=== PATIENT | female | born 2005 | race Caucasian/White ===

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

== ENCOUNTER 2024-08-15 08:17 | Emergency (ER) | payer OTHER, SELFPAY ==
--- OUTSIDE RECORDS SUMMARY | 2024-08-15 08:21 | XMS_ITS | Clinical Summary ---
Author Organization [facility] Address [address] [place] [id number] Care Team Providers Care Scrap Bunch Maker Name Role Phone Pcp, No Primary Care Provider Unavailabl e Allergies No known active allergies Medications ISOtretinoin (ACCUTANE PO) Active dexamethasone (DECADRON) 2 MG tablet Take 5 tablets by mouth 1 time. 5 tablet 10/03/2019 Active Active Problems No known active problems Immunizations Immunization Administration Dates Next Due DTaP 05/21/2010, 9,12/03/2008,12/21/2004,0 12/21/2004,2003,2003,2003, DTaP/IPV 12/03/2008 HIB, Unspecified Formulation 03/24/2004,09/25/19 04,2003,2003 Hep A, ped/adol, 2 dose 04/16/2015,03/05/2014, Hep B, Unspecified Formulation 2003 Hep B, adolescent or pediatric 03/05/2014,2003,2003,2003 Hib (PRP-T) 03/24/2004,2003,2003 ,2003 IPV 12/03/2008,03/24/2004,2003 ,2003 MMR 12/03/2008,12/21/2004,2003 Meningococcal Conjugate MCV4O 10/27/2017 Polio, Oral 03/24/2004,2003,2003 Polio, Unspecified Formulation 03/24/2004,2003,2003 Tdap 04/16/2015 Varicella 08/07/2009,12/03/2008 Surgical History Surgery Date Site/Laterality Comments NO PAST SURGERIES Family History Medical History Relation Comments Diabetes Brother NEGATIVE FAMILY HX OF Father Hearing Loss Mother NEGATIVE FAMILY HX OF Mother Cancer Paternal Grandmother Relation Status Comments Brother Father Alive Mother Alive Paternal Grandmother Social History Tobacco Use Types Packs/Day Years Used Date Smoking Tobacco: Never Smokeless Tobacco: Never Tobacco Cessation:Counseling Given: Yes Alcohol Use Standard Drinks/Week Comments No 0 (1 standard drink = 0.6 oz pur e alcohol) PHQ-2 Answer Date Recorded PHQ-2 Score 1 10/18/2018 Interpersonal Safety Answer Date Record ed Social Determinants: Intimate Partner Violence P ast Fear Not on file 07/31/2020 Social Determinants: Intimate Partner Violence C urrent Fear Not on file 07/31/2020 Inadequate Housing Answer Date Recorded Social Determinants: Housing (Overall Score Help er) 0 12/10/2018 Sexually Active Control Partners Comments Never Comments No Sex and Gender Information Value Date Recorded Sex Assigned at Not on file Legal Sex Female 10:53 AM SLEEVE SEWER Gender Identity Not on file Sexual Orientation Not on file Obstetrics History Last Filed Vital Signs Vital Sign Reading Time Taken Comments Blood Pressure 124/73 10/01/2021 9:32 AM CDT Pulse 100 10/01/2021 9:32 AM CDT Temperature 36.2 C (97.2 F) 10/01/2021 9:32 AM CDT Respiratory Rate 18 10/01/2021 9:32 AM CDT Oxygen Saturation 99% 10/01/2021 9:32 AM CDT Inhaled Oxygen Concentration - - Weight 52 kg (114 lb 10.2 oz) 10/01/2021 9:32 AM CDT Height 172.7 cm (5' 8) 10/03/2019 10:38 AM CDT Body Mass Index - - Plan of Treatment Health Maintenance Due Date Last Done Comments Annual Physical (ages 3 - 21) 2006 Depression Screening 2015 HPV Vaccine (1 - 3-dose series) 2018 Meningococcal Serogroup B Vaccine (1 of 2 - Standard) 2019 Chlamydia and Gonorrhea Screening (if sexually active) 2021 COVID-19 Vaccine ( - 2023- season) 2023 Influenza Vaccine (Season Ended) 2024 DTaP/Tdap/Td Vaccine (7 - Td or Tdap) 04/16/2025 04/16/2015, 05/21/2010, 12/03/2008, Additional history exists Varicella Vaccine Completed 08/07/2009, 12/03/2008 Hepatitis B Vaccine Completed 03/05/2014, 2003, 2003, Additional history exists Hepatitis A Vaccine Completed 04/16/2015, 03/05/2014, 2003 Meningococcal Vaccine Aged Out 10/27/2017 No monroe verna eligible based on patient's age to complete this topic Pneumococcal Vaccine 0-49 Aged Out No longer eligible based on patient's age to complete this topic Care Teams Scrap Bunch Maker Relationship Specialty Start Date End Date Pcp, No PCP - General 10/01/21
--- OUTSIDE RECORDS SUMMARY | 2024-08-15 08:21 | XMS_ITS | Encounter Summary ---
Author Organization [facility] Address [address] [place] [address] Care Team Providers Care Auditor Tax Name Role Phone Sharon Rebolledo MD Primary Care Provider [phone] Júnior Rice MD Primary Care Provider [phone] Maxwell Ulloa [facility] Primary Care Provider [phone] Reason for Visit * Reason Comments Discharge Summary (SCAN) [facility] Encounter Details Date Type Department Care Team (Late st Contact Info) Description [facility] [address] [place] [phone] Scanned, Documents Discharge Summary (SCAN) ([facility]) Social History Tobacco Use Types Packs/Day Years Used Date Smoking Tobacco: Never Smokeless Tobacco: Never Comments:No second hand smok e Alcohol Use Standard Drinks/Week Comments No 0 (1 standard drink = 0.6 oz pur e alcohol) Comments No Sex and Gender Information Value Date Recorded Sex Assigned at Not on file Legal Sex Female 12:20 PM CDT Gender Identity Not on file Sexual Orientation Not on file documented as of this encounter Progress Notes * Pinky Smith - 02/10/2009 11:37 AM UNION LABORER N LABORER documented in this encounter Plan of Treatment Not on file documented as of this encounter Visit Diagnoses Not on filedocumented in this encounter Care Teams Auditor Tax Relationship Specialty Start Date End Date Sharon Rebolledo MD [address] [place] [address] PCP - General 03 10/27/08 Júnior Rice MD [address] [place] [phone] PCP - General FAMILY PRACTICE 10/22/12 10/26/15 Maxwell Ulloa, [facility] [place] [address] PCP - General NURSE PRACTITIONER 12/01/21 documented as of this encounter
--- OUTSIDE RECORDS SUMMARY | 2024-08-15 08:21 | XMS_ITS | Encounter Summary ---
Author Organization [facility] Address [address] [place] [address] Care Team Providers Care Production Dispatcher Name Role Phone Júnior Rice MD Primary Care Provider [phone] Maxwell Ulloa [facility] Primary Care Provider [phone] Reason for Visit * Reason Comments Error Encounter Details Date Type Department Care Team (Late st Contact Info) Description 02/13/[address] [facility] BUSINESS OFFICE [address] [place] [phone] Scanned, Documents Error Social History Tobacco Use Types Packs/Day Years [...] on file documented as of this encounter Plan of Treatment Not on file documented as of this encounter Visit Diagnoses Not on filedocumented in this encounter Care Teams Production Dispatcher Relationship Specialty Start Date End Date Júnior Rice MD [address] [place] [address] PCP - General FAMILY PRACTICE 10/22/12 10/26/15 Maxwell Ulloa, MACHINERY ERECTOR- [facility] [place] [address] [address] [place] [address] PCP - General NURSE PRACTITIONER 12/01/21 documented as of this encounter
--- OUTSIDE RECORDS SUMMARY | 2024-08-15 08:21 | XMS_ITS | Encounter Summary ---
Author Organization [facility] Address [address] [place] [address] Care Team Providers Care Sow Farm Barn Technician Name Role Phone Sharon Rebolledo MD Primary Care Provider [phone] Júnior Rice MD Primary Care Provider [phone] [facility] Primary Care Provider [phone] Reason for Visit * Reason Comments [facility] Record (SCAN) PHYSICAL Encounter Details Date Type Department Care Team (Late st Contact Info) Description [facility] [address] [place] [phone] Scanned, Documents [facility] Record (SCAN) (PHYSICAL) Social History Tobacco Use Types Packs/Day Years [...] encounter Progress Notes * Pinky Smith - 02/16/2009 7:56 AM WIRE WEAVING LOOM SETTER WEAVING LOOM SETTER documented in this encounter Plan of Treatment Not on file documented as of this encounter Visit Diagnoses Not on filedocumented in this encounter Care Teams Sow Farm Barn Technician Relationship Specialty Start Date End Date Sharon Rebolledo MD [address] [place] [address] PCP - General 03 10/27/08 Júnior Rice MD [address] [place] [address] PCP - General FAMILY PRACTICE 10/22/12 10/26/15 Maxwell Ulloa, [facility]- [facility] [place] [address] PCP - General NURSE PRACTITIONER 12/01/21 documented as of this encounter
--- OUTSIDE RECORDS SUMMARY | 2024-08-15 08:21 | XMS_ITS | Referral Summary ---
Author Organization [facility] Address [address] [place] [address] Care Team Providers Care Community Facilitator Name Role Phone Pcp, No Primary Care [...] Unspecified Formulation 03/24/2004,2003,2003 Tdap 04/16/2015 Varicella 08/07/2009,12/03/2008 Social History Tobacco Use Types Packs/Day Years [...] on file Legal Sex Female 10:53 AM MEAT BUTCHER Gender Identity Not on file Sexual Orientation Not on file Last Filed Vital Signs Vital Sign Reading [...] Mass Index - - Plan of Treatment Not on file Care Teams Community Facilitator Relationship Specialty Start Date End Date Pcp, No PCP - General 10/01/21
--- OUTSIDE RECORDS SUMMARY | 2024-08-15 08:21 | XMS_ITS | Encounter Summary ---
Author Organization [facility] Address [address] [place] [address] Care Team Providers Care Furnace Roaster Name Role Phone Soledad Noble MD Primary Care Provider [phone] Pcp, No Primary Care Provider Unavailabl e Reason for Visit * Reason Comments Crying Encounter Details Date Type Department Care Team ([facility] Contact Info) Description 10/12/2018 Nurse Triage [facility] [address] [place], [place] [id number] Soledad Noble MD [address] [place] [address] Crying Social History Tobacco Use Types Packs/Day Years Used Date Smoking Tobacco: Never Smokeless Tobacco: Never Alcohol Use Standard Drinks/Week Comments No 0 (1 standard drink = 0.6 oz pur e alcohol) Sexually Active Control Partners Comments Never Comments No Sex and Gender Information Value Date Recorded Sex Assigned at Not on file Legal Sex Female 10:53 AM CARE CONSULTANT Gender Identity Not on file Sexual Orientation Not on file documented as of this encounter Miscellaneous Notes * Telephone Encounter - Luda Orozco RN - 10/12/2018 3:00 PM CDT Reason for Disposition ??? Mild depression (all triage questions negative) Protocols used: [id number] * Telephone Encounter - Luda Orozco RN - 10/12/2018 2:38 PM CDT Call to dad, states pt is upset and crying for couple hours. Past months trouble sleeping and steven herself to sleep. They wanted to have pt talk to someone but no appts available. Stated pt is mostlynormal but sometimes sleeps a lot. Spoke to pt asked if she feels depressed stated sometimes. Asked if anything upset her or happened that she would feel depressed or make her cry stated no. Stated did not feel like she wanted to harm herself or others. Spoke to dad, gave phone number for crisis center. Also gave phone number for [facility]. Suggested father should call to set up appt for evaluation. Stated will speak to pts mother to see if she agrees to calling [facility]. Advised if do not call now, if symptoms become worse. Pt doesn't stopcrying should call either crisis center or [facility]. Stated understanding. Will call if needed. appt made wiot hdr.v for 10-15 at 4:30 * Telephone Encounter - Sierra Krueger - 10/12/2018 2:32 PM CDT demetrius Caller states patient has been crying for the past couple of hours and cannot get her to stop - caller states in the past when patient can't sleep she tries to cry herself to sleep - caller is looking to speak to nurse robert documented in this encounter Plan of Treatment Not on file documented as of this encounter Visit Diagnoses Not on filedocumented in this encounter Additional Health Concerns Infection Onset Date Last Indicated Resolved Time Gastrointestinal Illness (rule out) 10/01/202110/0110/02/2021 1:46 PM CDT C. difficile (rule out) 10/01/2021 10/01/202109/09 3:44 PM CDT Gastrointestinal illness 10/01/2021 10/01/202104/2021 9:27 AM CDT documented as of this encounter Care Teams Furnace Roaster Relationship Specialty Start Date End Date Soledad Noble MD PCP - General Family Practice 03/05/14 09/30/21 Pcp, No PCP - General 10/01/21 documented as of this encounter
--- OUTSIDE RECORDS SUMMARY | 2024-08-15 08:21 | XMS_ITS | Clinical Summary ---
Author Organization [facility] Address [address] [place] [address] Care Team Providers Care Marine Pipe Welder Name Role Phone Maxwell Ulloa Jones [facility] Primary Care Provider [phone] Allergies No known active allergies Medications FEROSUL 325 (65 Fe) MG tablet Take 325 mg by mouth 2 (two) times daily. 11/15/2021 Active LORYNA 3-0.02 MG Tab Take 1 tablet by mouth daily. 09/10/2021 Active Ascorbic Acid (VITAMIN C) 500 MG Cap Take 1 capsule by mouth daily with lunch. Active Active Problems No known active problems Immunizations Immunization Administration Dates Next Due DTaP-IPV (Kinrix) 12/03/2008 Dtap 12/21/2004,2003,2003 ,2003 Hepatitis B (Generic Peds) 2003 Hepatitis B Pediatric 2003,2003 Hib 4 Dose Schedule 03/24/2004,2003,2003,2003 IPV/OPV 03/24/2004,2003,2003 MMR (MMRII) 12/03/2008 Mmr (Measles,Mumps,Rubella) 12/21/2004 Varicella (Varivax) 08/07/2009,12/03/2008 Family History Medical History Relation Comments None Brother Cancer Father prostate Diabetes Maternal Grandmother None Mother None Paternal Grandfather Cancer Paternal Grandmother lymphoma Relation Status Comments Brother Father Maternal Grandmother Mother Paternal Grandfather Paternal Grandmother Social History Tobacco Use Types [...] Sign Reading Time Taken Comments Blood Pressure 110/56 12/01/2021 11:18 AM CDT Pulse 80 12/01/2021 11:18 AM CDT Temperature 36.4 C (97.6 F) 12/10/2012 12:55 PM CDT Respiratory Rate 14 12/01/2021 11:18 AM CDT Oxygen Saturation 98% 12/10/2012 12:55 PM CDT Inhaled Oxygen Concentration - - Weight 52.9 kg (116 lb 9.6 oz) 12/01/2021 11:18 AM CDT Height 175.3 cm (5' 9) 12/01/2021 11:18 AM CDT Body Mass Index 17.22 12/01/2021 11:18 AM CDT Plan of Treatment Health Maintenance Due Date Last Done Comments Cervical Cancer Screening Pap Smear (Age 21 to 29) Every 3 Years 2003 Cervical Cancer Screening 2003 Annual Physical 10/23/2013 10/23/2012, 12/03/2008 Hepatitis C 2021 HPV Vaccines (3 - 3-dose series) 02/22/2022 11/30/2021, 11/28/2019 COVID-19 Vaccine ( season) 2023 11/29/2021, 09/09/2020, 08/11/2020 DTaP, Tdap and Td Vaccines (7 - Td or Tdap) 04/16/2025 04/16/2015, 05/21/2010, 12/03/2008, Additional history exists Hepatitis B Vaccines Addressed 03/05/2014, 11/15/2007 (Not appropriate at this time), 2003, Additional history exists Overridden with the intention of not completing the topic Meningococcal Vaccine Completed 11/28/2019, 018 Meningococcal B Vaccine Completed 11/30/2021, 11/27 Pneumococcal Vaccine: Pediatrics (0 to 5 Years) and At-Risk Patients (6 to 49 Years) Aged Out No longer eligible based on patient's age to complete this topic RSV Immunizations Under 20 Months Aged Out No longer eligible based on patient's age to complete this topic Care Teams Marine Pipe Welder Relationship Specialty Start Date End Date Maxwell Ulloa, ROOFING LAYER- [address] [place] [address] [place] [address] PCP - General NURSE PRACTITIONER 12/01/21
--- OUTSIDE RECORDS SUMMARY | 2024-08-15 08:21 | XMS_ITS | Encounter Summary ---
Author Organization [facility] Address [facility] [place] [address] Care Team Providers Care Bridge Toll Collector Name Role Phone Sharon Rebolledo MD Primary Care Provider [phone] Júnior Rice MD Primary Care Provider [phone] Maxwell Ulloa [facility] Primary Care Provider [phone] Reason for Visit * Reason Comments ER Note (SCAN) [facility]- [facility] Encounter Details Date Type Department Care Team (Late st Contact Info) Description 11/09/2007 [facility] BUSINESS OFFICE [address] [place] [phone] Scanned, Documents ER Note (SCAN) ([facility]- [facility] HAND IN[facility]) Social History Tobacco Use Types Packs/Day Years [...] encounter Progress Notes * Pinky Smith - 01/28/2008 10:48 AM CDT documented in this encounter Plan of Treatment Not on file documented as of this encounter Visit Diagnoses Not on filedocumented in this encounter Care Teams Bridge Toll Collector Relationship Specialty Start Date End Date Sharon Rebolledo MD [address] [place] [address] PCP - General 03 10/27/08 Júnior Rice MD [address] [place] [phone] PCP - General FAMILY PRACTICE 10/22/12 10/26/15 Maxwell Ulloa, [facility] [place] [address] PCP - General NURSE PRACTITIONER 12/01/21 documented as of this encounter
--- OUTSIDE RECORDS SUMMARY | 2024-08-15 08:21 | XMS_ITS | Encounter Summary ---
Author Organization [facility] Address [address] [place] [address] Care Team Providers Care Technician Automatic Name Role Phone Júnior Rice MD Primary Care Provider [phone] Maxwell Ulloa [facility] Primary Care Provider [phone] Reason for Visit * Reason Comments ER Note (SCAN) LACERATION TO CHIN - - [facility] Encounter Details Date Type Department Care Team (Late st Contact Info) Description 05/23/2009 [facility] BUSINESS OFFICE [address] [place] [phone] Scanned, Documents ER Note (SCAN) (LACERATION TO CHIN -- [facility]) Social History Tobacco Use Types Packs/Day Years [...] encounter Progress Notes * Pinky Smith - 05/26/2009 11:52 AM NIBBLER OPERATOR LER OPERATOR documented in this encounter Plan of Treatment Not on file documented as of this encounter Visit Diagnoses Not on filedocumented in this encounter Care Teams Technician Automatic Relationship Specialty Start Date End Date Júnior Rice MD [address] [place] [address] PCP - General FAMILY PRACTICE 10/22/12 10/26/15 Maxwell Ulloa, TELESALES CONSULTANT- [email or web address] [place] [address] PCP - General NURSE PRACTITIONER 12/01/21 documented as of this encounter
[2024-08-15 08:22] VITALS: BP 119/81; PULSE 85; RESP 16; TEMP 36.8; O2SAT 98; BMI 19.4
--- NOTE | 2024-08-15 08:43 | ED.WOUNDLAC ---
HPI - Wound/Laceration General Chief Complaint: Laceration/Wound Stated Complaint: Fell- upper left side lip cut History of Present Illness HPI narrative: This 19-year-old female comes in with laceration to the inner aspect of her left lateral upper lip. She states that she tripped getting out of bed this morning and fell bumping her face in this area. There is no report of loss of consciousness or other injury. Her last tetanus vaccination was 9 years ago. Related Data Home Medications ?Medication ?Instructions ?Recorded ?Confirmed No Known Home Medications 08/14/22 08/15/24 Allergies Allergy/AdvReac Type Severity Reaction Status Date / Time No Known Drug Allergies Allergy Verified 08/15/24 08:21 Review of Systems Status of ROS: Reports: 10 or more systems reviewed and unremarkable except as noted in History and below Narrative: Constitutional: No fevers, no weight gain or loss. Eyes: No discharge. No vision changes. HENT: No congestion, no sore throat, no ear pain. Cardiovascular: No chest pain, no palpitations. Respiratory: No shortness of breath, no wheezes, no cough. Gastrointestinal: No abdominal pain, no vomiting, no diarrhea. Genitourinary: No dysuria, no hematuria. Musculoskeletal: Normal range of motion. Skin: No rashes, no pruritis. Neurological: No dizziness, weakness, sensory change, speech change. Endo/Heme/Allergies: No bruising or bleeding. No polydipsia. Pysch: no suicidality, no anxiety, no insomnia. All other systems reviewed and are negative. [facility] Medical History (Updated 08/15/24 @ 08:46 by Bishnu Beavers MD) No significant past medical history Surgical History (Updated 08/14/22 @ 01:45 by Emiliano Molina RN) No significant past surgical history Social History Smoking Status: Never smoker Second hand tobacco smoke exposure: No How often do you have a drink containing alcohol: never How often do you have six or more drinks on one occasion: Never AUDIT-C Alcohol total score: 0 Non-prescribed substance use: denies use Exam Narrative: Exam Narrative: Constitutional: Well-developed, well-nourished, no acute distress. HEENT: The lateral aspect of the left side of the upper lip has a small laceration less than 1 cm on the inner aspect of the lip. This does not cross the lip line. Neck: Normal range of motion. Nontender. Supple. Heart: Intact distal pulses. Lungs: No chest discomfort. No wheezes, rhonchi, or rales. Abdomen: Nontender. Back: Normal range of motion. Extremities: Normal range of motion. No injury. Skin: Intact. No rash. Warm. No erythema or pallor. Neurologic: No altered sensation. No weakness. Alert and oriented. Psychiatric: No suicidality. No anxiety or depression. No insomnia. Nursing notes and vitals signs are reviewed. Const: Vital Signs, click to edit/add: Vital Signs - 24 hr 08/15/24 08:22 Temperature 98.3 F Pulse Rate [Pulse Oximeter] 85 Respiratory Rate 16 Blood Pressure [Ri ght Upper Arm] 119/81 Pulse Oximetry 98 Oxygen Delivery Me thod Room Air Course Vital Signs Vital signs: Initial Vital Signs Temperature 98.3 F 08/15/24 08:22 Temperature Source Temporal Artery Scan 08/15/24 08:22 Pulse Rate 85 08/15/24 08:22 Respiratory Rate 16 08/15/24 08:22 Blood Pressure 119/81 08/15/24 08:22 Blood Pressure Mean 93 08/15/24 08:22 Blood Pressure Position Sitting 08/15/24 08:22 Pulse Oximetry 98 08/15/24 08:22 Oxygen Delivery Method Room Air 08/15/24 08:22 Vital Signs Temperature 98.3 F 08/15/24 08:22 Pulse Rate 85 08/15/24 08:22 Respiratory Rate 16 08/15/24 08:22 Blood Pressure 119/81 08/15/24 08:22 Pulse Oximetry 98 08/15/24 08:22 Oxygen Delivery Method Room Air 08/15/24 08:22 Temperature 98.3 F 08/15/24 08:22 Pulse Rate 85 08/15/24 08:22 Respiratory Rate 16 08/15/24 08:22 Blood Pressure 119/81 08/15/24 08:22 Pulse Oximetry 98 08/15/24 08:22 Oxygen Delivery Method Room Air 08/15/24 08:22 MDM - Wound/Laceration MDM Narrative Medical decision making narrative: This patient comes in because of a laceration to her upper lip as described above. The laceration is less than 1 cm in length and involves the inner aspect of her lip and does not cross the lip line. The wound edges are nicely approximated. I stated the patient that repair is not indicated as this type of wound will heal nicely without intervention. I recommended tetanus vaccination but the patient states that she will delay this for now. Discharge Plan Discharge Clinical Impression: Laceration Patient Disposition: Home, Self-Care Condition: Stable Additional Instructions: Use [id number] medicines as needed and directed. Follow up with MD return if worsening. Prescriptions: No Action No Known Home Medications Follow Up/Referrals: Provider,Not a Local [Primary Care Provider] - Stand Alone Forms: [employer] Info Instructions
--- OUTSIDE RECORDS SUMMARY | 2024-08-15 09:08 | XMS_ITS | Referral Summary ---
Author Organization [facility] Address [address] [place] [address] Care Team Providers Care Fire Boss Name Role Phone Pcp, No Primary Care [...] on file Legal Sex Female 10:53 AM LINKER UP Gender Identity Not on file Sexual Orientation [...] of Treatment Not on file Care Teams Fire Boss Relationship Specialty Start Date End Date Pcp, No PCP - General 10/01/21
--- OUTSIDE RECORDS SUMMARY | 2024-08-15 09:08 | XMS_ITS | Encounter Summary ---
Author Organization [facility] Address [address] [place] [address] Care Team Providers Care Intermodal Dispatcher Name Role Phone Júnior Rice MD Primary Care Provider [phone] Maxwell Ulloa [facility] Primary Care Provider [phone] Reason for Visit * Reason Comments ER Note (SCAN) LACERATION TO CHIN - - [facility] Encounter Details Date Type Department Care Team (Late st Contact Info) Description 05/23/2009 [facility] BUSINESS OFFICE [address] [place] [phone] Scanned, Documents ER Note (SCAN) (LACERATION [...] * Pinky Smith - 05/26/2009 11:52 AM MOLDED FRAMES ASSEMBLER ED FRAMES ASSEMBLER documented in this encounter Plan of Treatment Not on file documented as of this encounter Visit Diagnoses Not on filedocumented in this encounter Care Teams Intermodal Dispatcher Relationship Specialty Start Date End Date Júnior Rice MD [address] [place] [address] PCP - General FAMILY PRACTICE 10/22/12 10/26/15 Maxwell Ulloa, IRB COMPLIANCE COORDINATOR- [facility] [place] [address] PCP - General NURSE PRACTITIONER 12/01/21 documented as of this encounter
--- OUTSIDE RECORDS SUMMARY | 2024-08-15 09:08 | XMS_ITS | Encounter Summary ---
Author Organization [facility] Address [address] [place] [address] Care Team Providers Care Pigment Furnace Tender Name Role Phone Soledad Noble MD Primary Care Provider Pcp, No Primary Care Provider Unavailabl e Reason for Visit * Reason Comments Crying Encounter Details Date Type Department Care Team ([facility] Contact Info) Description 10/12/2018 Nurse Triage [facility] [address] [place], [place] [phone] Soledad Noble MD [address] [place] [address] Crying Social History Tobacco Use Types Packs/Day Years Used Date Smoking Tobacco: Never Smokeless Tobacco: Never Alcohol Use Standard Drinks/Week Comments No 0 (1 standard drink = 0.6 oz pur e alcohol) Sexually Active Control Partners Comments Never Comments No Sex and Gender Information Value Date Recorded Sex Assigned at Not on file Legal Sex Female 10:53 AM AEROSPACE PROJECT MANAGER Gender Identity Not on file Sexual Orientation Not on file documented as of this encounter Miscellaneous Notes * Telephone Encounter - Luda Orozco RN - 10/12/2018 3:00 PM CDT Reason for Disposition ??? Mild depression (all triage questions negative) Protocols used: [id number] * Telephone Encounter - Luda Orozco RN [...] crisis center. Also gave phone number for [facility]. Suggested father should call to set up appt for evaluation. Stated will speak to pts mother to see if she agrees to calling [facility]. Advised if do not call now, if symptoms become worse. Pt doesn't stopcrying should call either crisis center or [facility]. Stated understanding. Will call if needed. appt [...] documented as of this encounter Care Teams Pigment Furnace Tender Relationship Specialty Start Date End Date Soledad Noble MD PCP - General Family Practice 03/05/14 09/30/21 Pcp, No PCP - General 10/01/21 documented as of this encounter
--- OUTSIDE RECORDS SUMMARY | 2024-08-15 09:08 | XMS_ITS | Encounter Summary ---
Author Organization [facility] Address [address] [place] [address] Care Team Providers Care Zinc Etcher Name Role Phone Sharon Rebolledo MD Primary Care Provider [phone] Júnior Rice MD Primary Care Provider [phone] Maxwell Ulloa [facility] Primary Care Provider [phone] Reason for Visit * Reason Comments [facility] Record (SCAN) PHYSICAL Encounter Details Date Type Department Care Team (Late st Contact Info) Description [facility] [address] [place] [phone] Scanned, Documents [facility] Record (SCAN) (PHYSICAL) Social History Tobacco [...] * Pinky Smith - 02/16/2009 7:56 AM BOBBIN TRUCKER IN TRUCKER documented in this encounter Plan of Treatment Not on file documented as of this encounter Visit Diagnoses Not on filedocumented in this encounter Care Teams Zinc Etcher Relationship Specialty Start Date End Date Sharon Rebolledo MD [address] [place] [address] PCP - General 03 10/27/08 Júnior Rice MD [address] [place] [address] PCP - General FAMILY PRACTICE 10/22/12 10/26/15 Maxwell Ulloa, [facility]- [facility] [place] [address] PCP - General NURSE PRACTITIONER 12/01/21 documented as of this encounter
--- OUTSIDE RECORDS SUMMARY | 2024-08-15 09:08 | XMS_ITS | Encounter Summary ---
Author Organization [facility] Address [address] [place] [address] Care Team Providers Care Construction And Maintenance Inspector Name Role Phone Sharon Rebolledo MD Primary Care Provider [phone] Júnior Rice MD Primary Care Provider [phone] Maxwell Ulloa [facility] Primary Care Provider [phone] Reason for Visit * Reason Comments Discharge Summary (SCAN) [facility] Encounter Details Date Type Department Care Team (Late st Contact Info) Description 2003 [facility] BUSINESS OFFICE [address] [place] [phone] Scanned, Documents Discharge Summary (SCAN) ([facility]) Social History Tobacco Use Types Packs/Day Years [...] * Pinky Smith - 02/10/2009 11:37 AM HUB LEAD LEAD documented in this encounter Plan of Treatment Not on file documented as of this encounter Visit Diagnoses Not on filedocumented in this encounter Care Teams Construction And Maintenance Inspector Relationship Specialty Start Date End Date Sharon Rebolledo MD [address] [place] [address] PCP - General 03 10/27/08 Júnior Rice MD [address] [place] [address] PCP - General FAMILY PRACTICE 10/22/12 10/26/15 Maxwell Ulloa, [facility]- [facility] [place] [address] PCP - General NURSE PRACTITIONER 12/01/21 documented as of this encounter
--- OUTSIDE RECORDS SUMMARY | 2024-08-15 09:08 | XMS_ITS | Encounter Summary ---
Author Organization [facility] Address [facility] [place] [address] Care Team Providers Care Dental Office Assistant Name Role Phone Sharon Rebolledo MD Primary Care Provider [phone] Júnior Rice MD Primary Care Provider [phone] [facility] Primary Care Provider [phone] Reason for Visit * Reason Comments ER Note (SCAN) [facility]- [facility] HAND [facility]JUR[facility] Encounter Details Date Type Department Care Team (Late st Contact Info) Description 11/09/2007 [facility] BUSINESS OFFICE [address] [place] [phone] Scanned, Documents ER Note (SCAN) ([facility]- [...] on filedocumented in this encounter Care Teams Dental Office Assistant Relationship Specialty Start Date End Date Sharon Rebolledo MD [address] [place] [address] PCP - General 03 10/27/08 Júnior Rice MD [address] [place] [phone] PCP - General FAMILY PRACTICE 10/22/12 10/26/15 Maxwell Ulloa, [facility]- [facility] [place] [address] PCP - General NURSE PRACTITIONER 12/01/21 documented as of this encounter
--- OUTSIDE RECORDS SUMMARY | 2024-08-15 09:08 | XMS_ITS | Encounter Summary ---
Author Organization [facility] Address [address] [place] [address] Care Team Providers Care Clinical Trial Manager Name Role Phone Júnior Rice MD Primary Care Provider [phone] Maxwell Ulloa [facility] Primary Care Provider [phone] Reason for Visit * Reason Comments Error Encounter Details Date Type Department Care Team (Late st Contact Info) Description 02/13/2009 [facility] BUSINESS OFFICE [address] [place] [phone] Scanned, Documents Error Social History Tobacco [...] on filedocumented in this encounter Care Teams Clinical Trial Manager Relationship Specialty Start Date End Date Júnior Rice MD [address] [place] [address] PCP - General FAMILY PRACTICE 10/22/12 10/26/15 Maxwell Ulloa, CEMENT TRUCK DRIVER- [facility] [place] [address] [address] [place] [address] PCP - General NURSE PRACTITIONER 12/01/21 documented as of this encounter
--- OUTSIDE RECORDS SUMMARY | 2024-08-15 09:08 | XMS_ITS | Clinical Summary ---
Author Organization [facility] Address [address] [place] [address] Care Team Providers Care Etymology Teacher Name Role Phone Maxwell Ulloa [facility] Primary Care Provider [phone] Allergies No known active allergies Medications FEROSUL [...] age to complete this topic Care Teams Etymology Teacher Relationship Specialty Start Date End Date Maxwell Ulloa, WIND TURBINE ENGINEER- [address] [place] [address] [place] [address] PCP - General NURSE PRACTITIONER 12/01/21
--- OUTSIDE RECORDS SUMMARY | 2024-08-15 09:08 | XMS_ITS | Clinical Summary ---
Author Organization [facility] Address [address] [place] [address] Care Team Providers Care Precision Farming Specialist Name Role Phone Pcp, No Primary Care [...] on file Legal Sex Female 10:53 AM CAN CUTTER Gender Identity Not on file Sexual Orientation [...] age to complete this topic Care Teams Precision Farming Specialist Relationship Specialty Start Date End Date Pcp, No PCP - General 10/01/21
== END 2024-08-15 09:09 | disposition home or self-care (01) ==
LOC: ED 09:06
PROVIDERS: Emergency Provider Emergency Medicine Emergency Medical Services
DX: S01.511A Laceration without foreign body of lip, initial encounter (principal); W01.198A Fall on same level from slipping, tripping and stumbling with subsequent striking against other object, initial encounter
CPT/HCPCS: 99282; 99283; 99284